=== PATIENT | male | born 2000 | race Caucasian/White ===

== ENCOUNTER 2025-10-26 16:26 | Emergency (ER) | payer MEDICAID ==
[~2025-10-26] VITALS: Ht 177.8 cm; Wt 61.8 kg
--- NOTE | 2025-10-26 17:52 | Physician Documentation ---
History of Present Illness ~ Chief Complaint: Flu Symptoms Stated Complaint: FEVER/ BODY ACHES Time Seen by MD: 17:23 OK to notify your PCP?: Yes Source: patient Mode of Arrival: POV Exam Limitations: no limitations HPI 25-year-old male who is here with body aches and fever that he states he has had for three days he states he starting to feel better but this morning when he missed another day of work his employer required him to come to the ER for a work note. He does not return to work until Wednesday. He states nobody else in the home has been ill. He denies cough, chest pain, shortness of breath, sore throat, sinus pain, abdominal pain, nausea, rashes, headache. Medication Reconciliation Allergies: Coded Allergies: No Known Allergies (Unverified , 10/26/25) Past Medical History Past Medical History: No Pertinent History Past Surgical History: noncontributory Lives In: Home Occupation: employed Review of Systems All Other Systems at this time: Reviewed and Negative Physical Exam Vital Signs: Temperature: 98.3, Heart Rate: 87, Respiratory Rate: 15, BP: 134/89, Pulse Oximetry: 100, Weight: 61.820 Oxygen Flow Rate: 0 Physical Exam General Appearance: Alert, WD/WN. NAD. HEENT: NCAT, PERRL, EOMI. Neck: Supple, trachea midline. Cardiovascular: RRR. No m/r/g. Lungs: CTAB. Breathing unlabored Extremities: Normal inspection. No edema. Skin: Warm/dry, normal color Neurological: Alert and oriented x4, normal gait. Psychiatric: Affect congruent with mood. Progress Results/Orders Reviewed/noted all lab results: Yes Results/Orders Vital Signs 10/26/25 10/26/25 10/26/25 16:35 17:58 18:07 Temp 98.3 98.3 98.3 Pulse 87 68 68 Resp 15 19 18 B/P (MAP) 134/89 136/98 (111) 122/85 Pulse Ox 100 98 99 O2 Flow Rate 0 0 Medical Decision Making Additional information obtaine: N/A Findings n/a Differential Dx:Considerations: Include: CVA, Dehydration, Drug toxicity, Electrolyte imbalance, Influenza, Meningitis, Mycardial infarction, Pneumonia, Pneumonitis, Pulmonary embolus, Pyelonephritis, Respiratory failure, Sepsis, UTI, Viral Syndrome, Other Departure Time of Disposition: 18:43 Disposition: 01 HOME / SELF CARE / HOMELESS Impression: Primary Impression: Viral infection Condition: Stable Discharge Instructions: Viral Illness Additional Instructions: SYMPTOMS ARE CONSISTENT WITH VIRAL INFECTION AND APPEAR TO BE RESOLVING SINCE YOU ARE AFEBRILE HERE AND REPORT FEELING BETTER, BECAUSE OF THIS TESTING FOR INFLUENZA OR COVID NOT DONE AND YOU ARE OUTSIDE OF THE TREATMENT WINDOW ANY WAYS TYLENOL, MOTRIN NOTE GIVEN FOR WORK YOU ARE CLEARED TO RETURN TO WORK ON WEDNESDAY ASSUMING YOUR TEMPERATURE REMAINS NORMAL AND NO NEW CONCERNING SYMPTOMS Departure Forms: Excuse form Work or School Excused From: Work May Return to full physical activity as of: Oct 29, 2025 Referrals: NO PRIMARY CARE PROVIDER (PCP) Education Educated: Patient Educated regarding: diagnosis, treatment, need for follow up Signature Scribe Signature: x Attestation: TANIA Park Oct 26, 2025 17:52 TOBIAS SMITH MD Oct 27, 2025 06:06
[2025-10-26 18:07] VITALS: BP 122/85; PULSE 68; RESP 18; TEMP 98.3; O2SAT 99
== END 2025-10-26 18:09 | disposition home or self-care (01) ==
LOC: ER 16:28
DX: B34.9 Viral infection, unspecified (principal)
CPT/HCPCS: 99282